=== PATIENT | female | born 1975 ===

== ENCOUNTER 2016-10-01 05:39 | Emergency (ER) | payer OTHER ==
[2016-10-01 06:06] VITALS: RESP 16
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
[2016-10-01 06:43] LABS: GRANULAR CAST 12 /lpf (0-1); RBC URINE 32 /hpf (0-3); URINE BACTERIA RARE (<OCC); URINE BILIRUBIN NEGATIVE (NEGATIVE); URINE BLOOD 3+ (NEGATIVE); URINE COLOR Yellow (YELLOW); URINE GLUCOSE (UA) NORMAL (Normal); URINE KETONE 2+ mg/dL (NEGATIVE); URINE LEUKOCYTE ESTERASE NEG Leu/uL (Negative); URINE PROTEIN 1+ mg/dL (NEGATIVE); URINE UROBILINOGEN NORMAL mg/dL (0.2-1.0); WBC URINE 9 /hpf (0-5)
[2016-10-01] MEDS ORDERED: Emtricitabine-Tenofovir 200 mg-300 mg Tab PO STA (09:13)
[2016-10-01] MEDS ORDERED: cefTRIAXone (Rocephin) 250 mg Inj IM STA (09:13)
[2016-10-01 10:28] LABS: HEMATOCRIT 37.2 % (34.0-47.0); MEAN CELL VOLUME 82.7 fL (81.0-99.0); MEAN CORPUSCULAR HEMOGLOBIN 26.7 pg (27.0-31.0); MEAN CORPUSCULAR HGB CONC 32.2 g/dL (33.0-37.0); MEAN PLATELET VOLUME 9.1 fL (7.2-11.7); RED CELL DISTRIBUTION WIDTH 14.4 % (11.5-14.5); WHITE BLOOD COUNT 22.2 K/uL (4.8-10.8)
[2016-10-01 10:53] LABS: CHLORIDE 99 mmol/L (98-107)
[2016-10-01 10:54] LABS: POTASSIUM 4.1 mmol/L (3.6-5.2); SODIUM 134 mmol/L (132-148)
[2016-10-01 10:56] LABS: ALB/GLOB RATIO 1.1 (1.0-2.1); AST/SGOT 33 U/L (14-36); BLOOD UREA NITROGEN 10 mg/dL (7-17); CARBON DIOXIDE 21 mmol/L (22-30); CHOLESTEROL 212 mg/dL (0-199); GFR AFRICAN-AMERICAN > 60; TOTAL PROTEIN 8.6 g/dL (6.3-8.3)
[2016-10-01 10:57] LABS: ALKALINE PHOSPHATASE 117 U/L (38-126); ALT/SGPT 17 U/L (9-52); CALCIUM 9.4 mg/dl (8.6-10.4); GLUCOSE,RANDOM 133 mg/dL (65-105)
[2016-10-01] MEDS ORDERED: cefTRIAXone 250 MG in Lidocaine Hydrochloride 0.9 ML IM ONE (11:00)
[2016-10-01 11:36] VITALS: BP 121/82; PULSE 87; TEMP 98.1; O2SAT 99
[2016-10-02] MEDS ORDERED: Emtricitabine-Tenofovir 200 mg-300 mg Tab PO NR (10:00)
== END 2016-10-01 11:32 | disposition home or self-care (01) ==
LOC: C.ER 05:39
DX: Z04.41 Encounter for examination and observation following alleged adult rape (principal)
CPT/HCPCS: 80053; 80061; 81001; 84703; 85027; 86703; 86706; 96372; 99285; J0696